=== PATIENT | male | born 1995 | race Caucasian/White ===

== ENCOUNTER 2021-04-04 09:09 | Emergency (ER) | payer OTHER ==
[2021-04-04 10:03] LABS: BASOPHIL 0.3 % (0-2); EOSINOPHIL 0.3 % (0-5); HCT 43.9 % (42.0-52.0); HGB 14.1 g/dl (13.2-18.0); LYMPHOCYTE 10.5 % (15-48); MCH 26.4 pg (25.0-31.0); MCHC 32.1 g/dL (32.0-36.0); MCV 82.2 fL (78.0-100.0); MONOCYTE 7.3 % (0-12); MPV 10.2 fL (6.0-9.5); NRBC 0; PLT 225 K/uL (150-400); RBC 5.34 M/uL (4.70-6.00); WBC 11.5 K/uL (4.0-10.5)
[2021-04-04 10:16] LABS: ALBUMIN 4.2 g/dL (3.4-5.0); BILIRUBIN - TOTAL 0.5 mg/dL (0.2-1.0); BUN/CREAT RATIO (CALC) 10.8 RATIO; CREATININE 0.93 mg/dL (0.67-1.17); GLOBULIN (CALCULATION) 3.2 g/dL; POTASSIUM 3.5 mmol/L (3.5-5.1); TOTAL PROTEIN 7.4 g/dL (6.4-8.2)
[2021-04-04 11:38] LABS: BILIRUBIN NEGATIVE (NEGATIVE); BLOOD NEGATIVE Ery/uL (NEGATIVE); CLARITY CLEAR (CLEAR); COLOR YELLOW (YELLOW); GLUCOSE (U) 1+ mg/dL (NORMAL); LEUKOCYTES NEGATIVE Leu/uL (NEGATIVE); NITRITE NEGATIVE (NEGATIVE); PROTEIN TRACE (LOW) mg/dL (NEGATIVE); SPECIFIC GRAVITY >=1.030 (1.001-1.030); UROBILINOGEN 0.2 mg/dL (0.2-1.0)
[2021-04-04 11:52] LABS: BACTERIA 1+; SQUAMOUS EPITHELIAL CELLS RARE
== END 2021-04-04 12:17 | disposition home or self-care (01) ==
LOC: FER 09:09
PROVIDERS: Internal Medicine
DX: R73.9 Hyperglycemia, unspecified (principal); R00.1 Bradycardia, unspecified; R42 Dizziness and giddiness; Z20.822 Contact with and (suspected) exposure to COVID-19; Z88.0 Allergy status to penicillin
CPT/HCPCS: 36415; 80053; 81001; 82150; 83036; 83690; 84145; 84443; 84484; 85025; 93005; U0002